=== PATIENT | male | born 1990 | race Caucasian/White ===

== ENCOUNTER 2016-03-03 07:32 | Emergency (ER) | payer MEDICAID ==
[2016-03-03 07:52] VITALS: RESP 16
--- NOTE | 2016-03-03 07:57 | EDPHY ---
H & P Stated Complaint: Brought in on M1 Source: Patient Exam Limitations: No limitations - Personal History Current Tetanus/Diphtheria Vaccine: Yes - Medical/Surgical History Hx Asthma: No Hx Chronic Respiratory Disease: No Hx Diabetes: No Hx Cardiac Disease: No Hx Renal Disease: No Hx Cirrhosis: No Hx Alcoholism: No Hx HIV/AIDS: No Hx Splenectomy or Spleen Trauma: No Other PMH: Schizophrenia - Social History Smoking Status: Current every day smoker Time Seen by Provider: 03/03/16 07:55 HPI/ROS: CHIEF COMPLAINT: M1 Hold, depression. HISTORY OF PRESENT ILLNESS: The patient is a 25-year-old male with a history of depression and schizo-affective disorder who presents via BPD on M1 Hold due to "a major low in my life." He has been unable to take his depression or antipsychotic medications due to lack of access. He has a history of suicide attempt at age 14 but has not recently tried to take his life. Per the M1 hold he was cold on the streets and told police he would jump into traffic when he had the chance. He admits recent productive cough with greenish yellow sputum, mild shortness of breath, and sore throat. He denies other complaints. REVIEW OF SYSTEMS: Aside from elements discussed in the HPI, a comprehensive 10-point review of systems was reviewed and is negative. PAST MEDICAL HISTORY: Schizo-affective. Depression. Patient states that he has been on Risperdal as well as Zoloft in the past. SOCIAL HISTORY: Here alone. VITAL SIGNS: Reviewed by me GENERAL: Disheveled. Resting comfortably in no respiratory distress. HEENT: Atraumatic. Eyes: No icterus, no injection. Mouth: moist mucous membranes. No erythema or lesions. Neck: supple with no adenopathy. LUNGS: Congested-sounding. Diminished breath sounds. No wheezes or rhonchi. CARDIAC: Regular rate and rhythm, no rubs, murmurs or gallops. ABDOMEN: Soft, nontender, nondistended, bowel sounds normal. BACK: No CVA tenderness. EXTREMITIES: No trauma. No edema. Range of motion is normal throughout. NEURO: Alert and oriented, grossly nonfocal. SKIN: Clammy. Warm and dry, no rash. PSYCHIATRIC: Normal mentation, no agitation. Portions of this note were transcribed by a medical care evaluation specialist. I personally performed a history, physical exam, medical decision making, and confirmed accuracy of information the transcribed note. (Alexandria Ny) Constitutional: Initial Vital Signs Temperature (C) 36.7 C 03/03/16 07:32 Heart Rate 116 H 03/03/16 07:32 Respiratory Rate 16 03/03/16 07:32 Blood Pressure 108/72 03/03/16 07:32 O2 Sat (%) 92 03/03/16 07:32 O2 Delivery Mode Room Air Allergies/Adverse Reactions: No Known Allergies Allergy (Unverified 11/20/14 11:48) Home Medications: Medication Instructions Recorded risperiDONE [Risperdal] 3 mg PO DAILY #30 tablet 02/18/15 traZODone [traZODONE 100MG (RX)] 100 mg PO HS #30 tab 02/18/15 Azithromycin [Zithromax] 250 mg PO DAILY #4 tab 03/03/16 Albuterol [Proventil Inhaler HFA 1 - 2 puffs IH Q4H #1 mdi 03/04/16 (*)] Guaifenesin [Guaifenesin ER] 600 mg PO BID #14 tab.er.12h 03/04/16 Sertraline HCl [Zoloft 50mg (*)] 50 mg PO DAILY #3 tab 03/04/16 predniSONE 60 mg PO DAILY #15 tab 03/04/16 risperiDONE [Risperdal] 3 mg PO HS #3 tablet 03/04/16 Medical Decision Making - Diagnostics Imaging: X-ray of the chest was obtained. I viewed the images myself on the PACS system. My interpretation of the images is: x-ray consistent with bronchitis and possible early right lower lobe pneumonia. The radiologist interpretation is pending at this time. I discussed the x-ray findings with the patient. ( Alexandria Ny) ED Course/Re-evaluation: An IV was established and labs ordered. Chest x-ray ordered. WBC elevated at 14.66. Patient shows bronchitis on x-ray. He was given Azithromycin 500mg PO. Patient's urine tox is positive for methamphetamines. Patient was medically cleared at 10:30 a.m.. [facility] was contacted. We were informed that they will evaluate the patient in 8 hours after he has cleared his methamphetamines. Patient's care was assumed by Dr. Christal Lewis at 4:00 p.m.. (Alexandria Ny) 1802: I reevaluated the patient at this time. He remains stable. I rechecked the patient while here. He had no new complaints. Patient is signed out to Dr. Hull at change of shift. (Christal Lewis) 1216: Miles with EPS seen evaluated the patient patient is safe for discharge. We will get him a cab voucher to go to a warming [facility] tonight. He is no longer actively suicidal has good follow-up plan in place. I did re-evaluate this patient this time is resting comfortably. His, cooperative. He does not want hurt himself or anybody else. He agrees for discharge planning. He has good follow-up in place. I prescribed him Zoloft, Risperdal, Vistaril 3 day supply until he can get his medications refilled by his psychiatric physician. He understands this. (Curtis Hull) Differential Diagnosis: Differential diagnosis of the patient's presenting complaint was considered including but not limited to functional and major depression, situational depression, hypothyroidism, medication side effect, drugs and alcohol use, drug or alcohol withdrawal. (Alexandria Ny) My differential includes but is not limited to depression, suicidal ideation, alcohol abuse, drug abuse, schizoaffective disorder, psychosis, bipolar disorder (Christal Lewis) - Data Points Laboratory Results: Laboratory Results 03/03/16 08:43 03/03/16 08:43 Medications Given: Discontinued Medications Azithromycin (Zithromax) 500 mg PO EDNOW ONE PRN Reason: Protocol Stop: 03/03/16 09:13 Last Admin: 03/03/16 09:22 Dose: 500 mg Throat Lozenges (Cepacol Lozenge) 1 ea PO EDNOW ONE Stop: 03/03/16 22:09 Last Admin: 03/03/16 22:28 Dose: 1 ea Departure - Departure Disposition: Home, Routine, Self-Care Clinical Impression: Bronchitis Depression Qualifiers: Qualifier Code: (F32.9) Major depressive disorder, single episode, unspecified Condition: Good Instructions: Depression (ED), Acute Bronchitis (ED) Referrals: NONE *PRIMARY CARE P,. [Primary Care Provider] - As per Instructions Prescriptions: Guaifenesin [Guaifenesin ER] 600 mg PO BID #14 tab.er.12h Albuterol [Proventil Inhaler HFA (*)] 1 - 2 puffs IH Q4H #1 mdi risperiDONE [Risperdal] 3 mg PO HS #3 tablet Azithromycin [Zithromax] 250 mg PO DAILY #4 tab Sertraline HCl [Zoloft 50mg (*)] 50 mg PO DAILY #3 tab predniSONE 60 mg PO DAILY #15 tab Report Scribed for: Alexandria Ny Report Scribed by: Abdifatah Washington Date of Report: 03/03/16 Time of Report: 07:56 Physician Review and Approval Statement: 03/03/16 07:56 (Alexandria Ny)
[2016-03-03 08:55] LABS: % IMMATURE GRANULYOCYTES 0.4 % (0.0-1.1); ABSOLUTE IMMATURE GRANULOCYTES 0.06 10^3/uL (0.00-0.10); ADD DIFF? NO; ADD MORPH? NO; ADD SCAN? NO; ATYPICAL LYMPHOCYTE FLAG 30 (0-99); FRAGMENT RBC FLAG 0 (0-99); HEMATOCRIT 46.5 % (40.0-51.0); HEMOGLOBIN 16.1 g/dL (13.7-17.5); LEFT SHIFT FLG 0 (0-99); LIPEMIA HEMOLYSIS FLAG 90 (0-99); MEAN CELL HEMOGLOBIN 29.3 pg (27.9-34.1); MEAN CELL HEMOGLOBIN CONCENTR. 34.6 g/dL (32.4-36.7); MEAN CELL VOLUME 84.5 fL (81.5-99.8); MEAN PLATELET VOLUME 8.9 fL (8.7-11.7); PLATELET CLUMPS FLAG 0 (0-99); PLATELET COUNT 482 10^3/uL (150-400)
[2016-03-03] MEDS ORDERED: AZITHROMYCIN 250 MG TAB PO ONE (09:12)
[2016-03-03 09:16] LABS: ANION GAP 16 mEq/L (8-16); CALCIUM 9.6 mg/dL (8.5-10.4); CARBON DIOXIDE 27 mEq/l (22-31); CHLORIDE 99 mEq/L (97-110); CREATININE 0.7 mg/dL (0.7-1.3); GLOMERULAR FILTRATION RATE > 60; GLUCOSE 118 mg/dL (70-100); POTASSIUM 3.9 mEq/L (3.5-5.2); SALICYLATE < 1.0 mg/dL (2.0-20.0); SODIUM 142 mEq/L (134-144)
--- NOTE | 2016-03-03 09:22 | DX ---
Chest, Two Views March 03, 2016 at 0840 Hours History: Cough and chest pain. Comparison: None. Findings: Cardiac silhouette is within normal range. Bilateral peribronchial thickening. No pneumonia , congestive heart failure, pleural effusion, or pneumothorax. Impressions: 1. Bronchitis. 2. No definite pneumonia.
[2016-03-03] MEDS ORDERED: CEPACOL LOZENGE PO ONE (22:08)
[2016-03-03 22:34] VITALS: TEMP 98.6
[2016-03-04] MEDS ORDERED: AZITHROMYCIN 250 MG TAB PO SCH
[2016-03-04] MEDS ORDERED: ALBUTEROL INH PREPACK MDI TAKEHOME ONE (01:22)
[2016-03-04 01:33] VITALS: BP 108/71; PULSE 75; O2SAT 95
== END 2016-03-04 01:33 | disposition home or self-care (01) ==
DX: F32.9 Major depressive disorder, single episode, unspecified (principal); J20.9 Acute bronchitis, unspecified; F17.200 Nicotine dependence, unspecified, uncomplicated
CPT/HCPCS: G0477; G0480

== ENCOUNTER 2016-03-10 08:21 | Emergency (ER) | payer MEDICAID ==
[2016-03-10 08:35] VITALS: TEMP 97.7
--- NOTE | 2016-03-10 08:48 | EDPHY ---
H & P Time Seen by Provider: 03/10/16 08:28 HPI/ROS: CHIEF COMPLAINT: Vomiting HISTORY OF PRESENT ILLNESS: The patient is a 25 year old male, [facility] in by [facility], presenting with nausea and vomiting. The patient had 2 episodes of emesis this morning. He denies recent alcohol use. He denies abdominal pain, fever or diarrhea. Patient has no other complaints at this time. REVIEW OF SYSTEMS: Aside from elements discussed in the HPI, a comprehensive 10-point review of systems was reviewed and is negative. Past Medical/Surgical History: Depression, Schizoaffective disorder. Social History: Homeless Smoking Status: Current every day smoker Physical Exam: General Appearance: Alert, no distress Eyes: Pupils equal and round, no conjunctival pallor or injection ENT, Mouth: Mucous membranes moist Neck: Normal inspection Respiratory: Lungs are clear to auscultation Cardiovascular: Regular rate and rhythm Gastrointestinal: Abdomen is soft and non-tender Neurological: A&O, nonfocal, normal gait Skin: Warm and dry, no rash Extremities: Nontender, no pedal edema Psychiatric: Mood and affect normal Constitutional: Initial Vital Signs Temperature (C) 36.5 C 03/10/16 08:34 Heart Rate 106 H 03/10/16 08:34 Respiratory Rate 18 03/10/16 08:34 Blood Pressure 117/76 03/10/16 08:34 O2 Sat (%) 95 03/10/16 08:34 O2 Delivery Mode Room Air Allergies/Adverse Reactions: No Known Allergies Allergy (Verified 03/10/16 08:26) Home Medications: Medication Instructions Recorded NK [No Known Home Meds] 03/10/16 Medical Decision Making ED Course/Re-evaluation: Likely acute gastritis; no evidence of acute pancreatitis, appy, SBO. Zofran 4mg ODT given. [place] better, will send home with Zofran ODT. - Data Points Medications Given: Discontinued Medications Ondansetron HCl (Zofran Odt 4 Mg Prepack#2) 1 btl TAKEHOME EDNOW ONE Stop: 03/10/16 08:59 Last Admin: 03/10/16 08:59 Dose: 1 btl Ondansetron HCl (Zofran Odt) 4 mg PO EDNOW ONE Stop: 03/10/16 08:59 Last Admin: 03/10/16 08:59 Dose: 4 mg Departure - Departure Disposition: Home, Routine, Self-Care Clinical Impression: Vomiting Qualifiers: Vomiting type: unspecified Vomiting Intractability: non-intractable Nausea presence: with nausea Qualifier Code: (R11.2) Nausea with vomiting, unspecified Condition: Good Instructions: Acute Nausea and Vomiting (ED) Additional Instructions: Take Zofran as directed for recurrent nausea and vomiting. Drink plenty of fluids. Followup with your primary care physician if you continue to have symptoms. Referrals: [facility] [Outside] - As per Instructions Report Scribed for: Nelly Toro Report Scribed by: Elaine Small Date of Report: 03/10/16 Time of Report: 08:48 Physician Review and Approval Statement: 03/10/16 08:48 Portions of this note were transcribed by a registered medical transcriptionist. I personally performed the history, physical exam, and medical decision-making; and confirmed the accuracy of the information in the transcribed note.
[2016-03-10] MEDS ORDERED: ONDANSETRON DISINTEGRATING 4 MG TAB PO ONE (08:58)
[2016-03-10] MEDS ORDERED: ONDANSETRON 4MG PREPACK#2 BTL TAKEHOME ONE ×2 (08:58→08:59)
[2016-03-10] MEDS ORDERED: ONDANSETRON DISINTEGRATING 4 MG TAB ONE (08:59)
[2016-03-10 09:23] VITALS: BP 108/76; PULSE 95; RESP 16; O2SAT 96
== END 2016-03-10 09:24 | disposition home or self-care (01) ==
LOC: EDUNIT#
DX: R11.2 Nausea with vomiting, unspecified (principal); F17.200 Nicotine dependence, unspecified, uncomplicated

== ENCOUNTER 2016-12-10 17:54 | Emergency (ER) | payer MEDICAID ==
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
[2016-12-10 19:34] VITALS: BP 122/84; PULSE 90; RESP 16; TEMP 99.7; O2SAT 96
== END 2016-12-10 19:34 | disposition home or self-care (01) ==
LOC: EDUNIT#
DX: S09.90XA Unspecified injury of head, initial encounter (principal); R41.82 Altered mental status, unspecified; F17.200 Nicotine dependence, unspecified, uncomplicated; Y08.89XA Assault by other specified means, initial encounter; Y99.8 Other external cause status; Y93.39 Activity, other involving climbing, rappelling and jumping off